=== PATIENT | female | born 1990 | race Caucasian/White ===

== ENCOUNTER 2018-10-03 05:31 | Emergency (ER) | payer OTHER ==
[~2018-10-03] VITALS: Ht 162.6 cm; Wt 63.5 kg
[~2018-10-03 05:31] MED LIST: PRENATABS RX T1 EACH PO; STOOL SOFTENER1 EAC2 PO
[2018-10-03] MEDS ORDERED: ULTRAM50 MG PO (06:46)
== END 2018-10-03 07:07 | disposition home or self-care (01) ==
LOC: ED 05:31
PROC: 2W23X4Z Dressing of Abdominal Wall using Bandage (ICD-10-PCS; principal; 2018-10-03)
PROC: 2W2FX4Z Dressing of Left Hand using Bandage (ICD-10-PCS; 2018-10-03)
DX: T21.22XA Burn of second degree of abdominal wall, initial encounter (principal); T23.202A Burn of second degree of left hand, unspecified site, initial encounter; T21.17XA Burn of first degree of female genital region, initial encounter; T24.112A Burn of first degree of left thigh, initial encounter; T24.111A Burn of first degree of right thigh, initial encounter; J45.909 Unspecified asthma, uncomplicated; F17.200 Nicotine dependence, unspecified, uncomplicated; Z88.5 Allergy status to narcotic agent; Z88.6 Allergy status to analgesic agent; Z23 Encounter for immunization; X08.8XXA Exposure to other specified smoke, fire and flames, initial encounter; W01.0XXA Fall on same level from slipping, tripping and stumbling without subsequent striking against object, initial encounter
CPT/HCPCS: 16020; 90471; 90715; 99283-25